=== PATIENT | female | born 1975 | race African-American/Black ===

== ENCOUNTER 2024-11-17 21:21 | Emergency (ER) | payer SELFPAY ==
--- NOTE | ~2024-11-17 | XR_ITS ---
HISTORY: L ankle injury WITH SWELLING COMPARISON: None TECHNIQUE: 3 views of the left ankle were performed FINDINGS: No acute fracture or dislocation. Moderate medial and lateral soft tissue swelling. Trace degenerative disease within the medial malleolus. The ankle mortise is preserved. Bone mineralization is age-appropriate. 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
--- NOTE | ~2024-11-17 | XR_ITS ---
HISTORY: pain, swelling COMPARISON: None TECHNIQUE: 3 views of the right elbow were performed FINDINGS: No acute fracture is identified. No elevation of the anterior or posterior fat pads are identified to suggest a supracondylar fracture - although examination is limited secondary to positioning and body habitus. Overlying soft tissues are unremarkable. Bone mineralization is age-appropriate. IMPRESSION: No acute fracture or dislocation, as detailed above. Reviewed, dictated and finalized at location A. [employer]ION MOLDING MACHINE OPERATOR
[2024-11-17 21:27] VITALS: BP 149/85; PULSE 92; RESP 16; TEMP 36.6; O2SAT 100
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
[2024-11-18 00:05] VITALS: BP 118/86; PULSE 68; RESP 16; TEMP 36.6; O2SAT 98
== END 2024-11-18 00:06 | disposition home or self-care (01) ==
LOC: ANHED 22:56
PROVIDERS: Emergency Provider Physician Assistant
DX: S93.402A Sprain of unspecified ligament of left ankle, initial encounter (principal); S50.01XA Contusion of right elbow, initial encounter; Y35.813A Legal intervention involving manhandling, suspect injured, initial encounter
CPT/HCPCS: 73080; 73610; 99284